=== PATIENT | male | born 1965 | race Caucasian/White ===

== ENCOUNTER → 2020-12-09 | Outpatient (CLI) | payer BC | LOC: EXRD 10:23 | DX: R19.8 Other specified symptoms and signs involving the digestive system and abdomen (principal) | CPT/HCPCS: 76706 ==

== ENCOUNTER → 2021-06-10 | Outpatient (CLI) | payer BC | LOC: KOH-I 10:49 | DX: R05.9 Cough, unspecified (principal); Z57.2 Occupational exposure to dust | CPT/HCPCS: 71046 ==